=== PATIENT | female | born 1990 | race Two or more races ===

== ENCOUNTER 2016-11-03 12:51 | Emergency (ER) | payer BC, OTHER ==
[2016-11-03 14:17] LABS: Appearance,Urine Cloudy (Clear); Bacteria,Urine Rare /hpf; Bilirubin,Urine Negative (Negative); Glucose,Urine (UA) Negative (Negative); Ketones,Urine Negative (Negative); Leukocyte Esterase,Urine Small (Negative); Mucus,Urine Few /hpf; Nitrite,Urine Negative (Negative); Particle Count 10706; Protein,Urine Trace (Negative); RBC,Urine 13 /hpf (0-5); Specific Gravity,Urine 1.021 (1.001-1.035); Squamous Epithelial Cell,Urine 4 /hpf (0-4); UA Billing (MACRO vs. MICRO) MICRO; Urobilinogen,Urine <2.0 mg/dL (<2.0); WBC,Urine 4 /hpf (0-5)
[2016-11-03 14:31] VITALS: RESP 18
[2016-11-03] MEDS ORDERED: PHENAZOPYRIDINE 200 MG TAB PO STA (14:36)
--- NOTE | 2016-11-03 14:40 | ED ---
General Adult HPI - General Chief complaint: Abdominal Pain Stated complaint: Abd Pain Time Seen by Provider: 11/03/16 13:25 Source: patient, family Mode of arrival: wheelchair Limitations: language barrier - History of Present Illness Initial comments: 25-year-old [facility] female presented for evaluation of suprapubic abdominal pain and dysuria. She states that her symptoms started earlier today and it progressively been worsening. She denies any previous history of urinary tract infections. She further denies any associated vaginal discharge, vaginal bleeding, diarrhea, nausea, vomiting, fever, or constipation. - Related Data Home Medications Medication Instructions Recorded Confirmed Minastrin 24 Fe 1 tab PO DAILY 11/03/16 11/03/16 Previous Rx's Medication Instructions Recorded Phenazopyridine HCl [Pyridium] 200 mg PO TID #6 tablet 11/03/16 Sulfamethox-Tmp 800-160Mg [Bactrim 1 tab PO Q12HR #14 tab 11/03/16 DS 800-160 mg] Allergies Allergy/AdvReac Type Severity Reaction Status Date / Time No Known Allergies Allergy Verified 11/03/16 13:44 Review of Systems ROS Statement: Those systems with pertinent positive or pertinent negative responses have been documented in the HPI. ROS Other: All systems not noted in ROS Statement are negative. Constitutional: Denies: fever, chills Eyes: Denies: eye pain, eye discharge ENT: Denies: ear pain, throat pain Respiratory: Denies: cough, dyspnea Cardiovascular: Denies: chest pain, palpitations Endocrine: Denies: fatigue, polydipsia Gastrointestinal: Reports: abdominal pain. Denies: nausea, vomiting, diarrhea Genitourinary: Reports: urgency, dysuria Musculoskeletal: Denies: back pain, myalgia Skin: Denies: rash, lesions Neurological: Denies: headache, weakness Psychiatric: Denies: anxiety, depression Hematological/Lymphatic: Denies: easy bleeding, swollen glands Past Medical History Past Medical History: No Reported History History of Any Multi-Drug Resistant Organisms: None Reported Past Surgical History: No Surgical Hx Reported Past Psychological History: No Psychological Hx Reported Smoking Status: Never smoker Past Alcohol Use History: None Reported Past Drug Use History: None Reported, Unable to Obtain General Exam Limitations: language barrier (Patient requested that her father interpret for her as her Montserratian was not as good as his) General appearance: alert, in no apparent distress Head exam: Present: atraumatic, normocephalic Eye exam: Present: normal appearance, PERRL ENT exam: Present: normal exam, normal oropharynx Neck exam: Present: normal inspection. Absent: tenderness Respiratory exam: Present: normal lung sounds bilaterally. Absent: respiratory distress Cardiovascular Exam: Present: regular rate, normal rhythm GI/Abdominal exam: Present: soft. Absent: distended Rectal exam: Present: deferred Extremities exam: Present: normal inspection, full ROM Back exam: Present: normal inspection, full ROM Neurological exam: Present: alert, oriented X3, CN II-XII intact. Absent: altered Psychiatric exam: Present: normal affect, normal mood Skin exam: Present: warm, dry, intact Course Vital Signs 11/03/16 11/03/16 11/03/16 13:23 14:29 15:14 Temperature 97.6 F 96.9 F L Pulse Rate 71 68 70 Respiratory 16 18 18 Rate Blood Pressure 119/55 101/58 101/60 O2 Sat by Pulse 98 96 97 Oximetry Medical Decision Making - Medical Decision Making 25-year-old [facility] female presented for evaluation of suprapubic abdominal pain and dysuria for the last day. She speaks very little [place]ian but requested that her father interpret for her as his is much better. On physical examination she is tender to palpation in the suprapubic area and urinalysis confirmed a urinary tract infection. Patient was given a dose of Pyridium here in the ED after confirming she does not wear corrective contact lenses. She was informed she would be discharged with prescriptions for Bactrim and Pyridium and follow-up with her primary care physician. She was further advised to return to this facility if her symptoms should worsen or persist. She acknowledged an understanding of this information and agreed with this plan of care. - Lab Data Lab Results 11/03/16 Range/Units 13:50 Urine Color Yellow Urine Appearance Cloudy H (Clear) Urine pH 6.0 (5.0-8.0) Ur Specific [place] 1.021 (1.001-1.035) Urine Protein Trace H (Negative) Urine Glucose (UA) Negative (Negative) Urine Ketones Negative (Negative) Urine Blood Small H (Negative) Urine Nitrite Negative (Negative) Urine Bilirubin Negative (Negative) Urine Urobilinogen <2.0 (<2.0) mg/dL Ur Leukocyte Esterase Small H (Negative) Urine RBC 13 H (0-5) /hpf Urine WBC 4 (0-5) /hpf Ur Squamous Epith Cells 4 (0-4) /hpf Urine Bacteria Rare H (None) /hpf Urine Mucus Few H (None) /hpf Disposition Clinical Impression: UTI (urinary tract infection) Disposition: HOME SELF-CARE Condition: Stable Instructions: Urinary Tract Infection in Women (ED) Additional Instructions: Please use medication as discussed. Please follow up with family doctor if symptoms have not improved over the next two days. Please return to the emergency room if your symptoms increase or worsen or for any other concerns. Prescriptions: Phenazopyridine HCl [Pyridium] 200 mg PO TID #6 tablet Sulfamethox-Tmp 800-160Mg [Bactrim DS 800-160 mg] 1 tab PO Q12HR #14 tab Referrals: None,Stated [Primary Care Provider] - 1-2 days Time of Disposition: 14:40
[2016-11-03 15:15] VITALS: BP 101/60; PULSE 70; TEMP 96.9
== END 2016-11-03 15:14 | disposition home or self-care (01) ==
LOC: EC 12:51
DX: N39.0 Urinary tract infection, site not specified (principal); R10.9 Unspecified abdominal pain; Z79.899 Other long term (current) drug therapy
CPT/HCPCS: 81001; 99284

== ENCOUNTER → 2017-01-27 | Outpatient (CLI) | payer BC, OTHER ==
[2017-01-27 12:42] LABS: Basophils # (A) 0.1 k/uL (0-0.2); Basophils % (A) 1 %; CH 26.8; Eosinophils # (A) 0.3 k/uL (0-0.7); Eosinophils % (A) 5 %; HCT 40.7 % (34.0-46.0); HDW 2.35; Luc # (Auto) 0.15; Luc % (Auto) 2; Lymphocytes # (A) 2.9 k/uL (1.0-4.8); Lymphocytes % (A) 45 %; MCV 84.2 fL (80.0-100.0); Mean Platelet Volume 7.6; Monocytes # (A) 0.3 k/uL (0-1.0); Monocytes % (A) 5 %; Neutrophils # (A) 2.7 k/uL (1.3-7.7); Neutrophils % (A) 42 %; RBC 4.83 m/uL (3.80-5.40); RDW 13.7 % (11.5-15.5); WBC 6.4 k/uL (3.8-10.6); WBC (Perox) 7.01
[2017-01-27 12:51] LABS: Iron 30 ug/dL (37-170)
[2017-01-27 13:01] LABS: % Iron Saturation 9.9 % (20-50); Total Iron Binding Capacity 303 ug/dL (265-497)
[2017-01-27 13:45] LABS: Vitamin B12 >1000 pg/mL (239-931)
== END | disposition home or self-care (01) ==
LOC: LABWHC1 12:24
PROVIDERS: ATTEND Physician Assistant Medical
DX: L65.9 Nonscarring hair loss, unspecified (principal)
CPT/HCPCS: 36415; 82607; 82728; 83540; 83550; 84439; 84443; 85025; 86038

== ENCOUNTER 2017-03-16 18:51 | Emergency (ER) | payer BC, OTHER ==
[2017-03-16 19:03] VITALS: BP 127/61; PULSE 74; RESP 20; TEMP 98.1
[2017-03-16] MEDS ORDERED: ACETAMINOPHEN TAB 500 MG TAB PO STA (20:06)
[2017-03-16] MEDS ORDERED: diphenhydrAMINE 50 MG CAP PO STA (20:06)
[2017-03-16] MEDS ORDERED: predniSONE 10 MG TAB PO STA (20:07)
--- NOTE | 2017-03-16 20:10 | ED ---
General Adult HPI - General Chief complaint: Skin/Abscess/Foreign Body Stated complaint: rash on arms Time Seen by Provider: 03/16/17 19:23 Source: patient, family Mode of arrival: ambulatory Limitations: language barrier - Related Data Home Medications Medication Instructions Recorded Confirmed Cyanocobalamin (Vitamin B-12) 1,000 mcg PO DAILY 03/16/17 03/16/17 [Vitamin B-12] Ferrous Sulfate [Feosol] 325 mg PO DAILY 03/16/17 03/16/17 Previous Rx's Medication Instructions Recorded Hydrocortisone Cream 1 applic TOPICAL TID #1 tube 03/16/17 [Hydrocortisone 1% Cream] diphenhydrAMINE [Benadryl] 25 mg PO QID PRN #20 capsule 03/16/17 predniSONE 20 mg PO BID #6 tab 03/16/17 Allergies Allergy/AdvReac Type Severity Reaction Status Date / Time No Known Allergies Allergy Verified 03/16/17 19:03 Review of Systems ROS Statement: Those systems with pertinent positive or pertinent negative responses have been documented in the HPI. ROS Other: All systems not noted in ROS Statement are negative. Past Medical History Past Medical History: No Reported History History of Any Multi-Drug Resistant Organisms: None Reported Past Surgical History: No Surgical Hx Reported Past Psychological History: No Psychological Hx Reported Smoking Status: Never smoker Past Alcohol Use History: None Reported Past Drug Use History: None Reported, Unable to Obtain General Exam Limitations: language barrier Course Vital Signs 03/16/17 19:00 Temperature 98.1 F Pulse Rate 74 Respiratory 20 Rate Blood Pressure 127/61 O2 Sat by Pulse 99 Oximetry Disposition Clinical Impression: Insect bite, Headache Disposition: HOME SELF-CARE Condition: Good Instructions: Insect Bite or Sting (ED) Additional Instructions: Patient advised to put the cream over this for the next 3 days. Take the medications as prescribed. Follow-up with her primary care provider. Return to the emergency department if any alarming signs or symptoms occur. Prescriptions: diphenhydrAMINE [Benadryl] 25 mg PO QID PRN #20 capsule PRN Reason: Itching Hydrocortisone Cream [Hydrocortisone 1% Cream] 1 applic TOPICAL TID #1 tube predniSONE 20 mg PO BID #6 tab Referrals: Segundo Thrasher MD [Primary Care Provider] - 1-2 days Time of Disposition: 20:08
== END 2017-03-16 20:20 | disposition home or self-care (01) ==
LOC: EC 18:51
DX: S40.862A Insect bite (nonvenomous) of left upper arm, initial encounter (principal); S40.861A Insect bite (nonvenomous) of right upper arm, initial encounter; R51 Headache; Z79.899 Other long term (current) drug therapy; W57.XXXA Bitten or stung by nonvenomous insect and other nonvenomous arthropods, initial encounter
CPT/HCPCS: 99282; J7512

== ENCOUNTER → 2017-08-25 | Outpatient (CLI) | payer OTHER ==
--- NOTE | 2017-08-25 14:29 | US ---
EXAMINATION TYPE: US pelvic complete DATE OF EXAM: 08/25/2017 COMPARISON: CT CLINICAL HISTORY: Ovarian Cysts N83.20. Intermittent pelvic pain; no pregnancies TECHNIQUE: TA; patient deferred TV US as came with empty bladder and chose to drink for full bladder TA pelvic assessment. Date of LMP: approximately one month ago EXAM MEASUREMENTS: Uterus: 6.4 x 3.9 x 3.2 cm Endometrial Stripe: 0.8 cm Right Ovary: 4.5 x 2.8 x 3.2 cm Left Ovary: 4.0 x 2.8 x 2.5 cm 1. Uterus: Anteverted 2. Endometrium: appears wnl 3. Right Ovary: simple ovarian cyst = 4.4 x 2.8 x 2.6cm 4. Left Ovary: simple dominant cystic follicle = 2.5 x 2.0 x 2.4cm Spectral, color and waveform doppler imaging shows good arterial and venous flow within the ovaries ; there is no evidence for ovarian torsion. 5. Bilateral Adnexa: wnl 6. Posterior cul-de-sac: wnl IMPRESSION: Simple appearing right ovarian cyst measuring up to 4.4 cm. Annual follow-up is recommend ed for cyst greater than 5 cm and therefore annual follow-up could be considered as this approaches 5 cm. Endometrial thickness is within normal limits.
== END ==
LOC: RADUSWWP 12:15
PROVIDERS: ATTEND Internal Medicine
DX: N83.201 Unspecified ovarian cyst, right side (principal)
CPT/HCPCS: 76856

== ENCOUNTER → 2017-12-04 | Outpatient (CLI) | payer OTHER ==
--- NOTE | 2017-12-05 08:06 | US ---
EXAMINATION TYPE: US pelvic complete DATE OF EXAM: 12/04/2017 COMPARISON: 08/25/2017 CLINICAL HISTORY: N83.0 RT OVARIAN CYST. *language barrier*pelvic pain TECHNIQUE: TA. Transabdominal sonographic images of the pelvis were acquired. Date of LMP: unknown EXAM MEASUREMENTS: Uterus: 6.7 x 4.3 x 2.7 cm Endometrial Stripe: 0.4 cm Right Ovary: 3.0 x 1.8 x 1.9 cm Left Ovary: 2.0 x 2.5 x 1.2 cm 1. Uterus: Anteverted wnl 2. Endometrium: wnl 3. Right Ovary: follicles seen all under 1cm 4. Left Ovary: wnl 5. Bilateral Adnexa: wnl 6. Posterior cul-de-sac: wnl IMPRESSION: No significant abnormality appreciated.
== END | disposition home or self-care (01) ==
LOC: RADUSWWP 15:49
PROVIDERS: ATTEND Internal Medicine
DX: N83.201 Unspecified ovarian cyst, right side (principal)
CPT/HCPCS: 76856

== ENCOUNTER 2018-07-30 15:36 | Emergency (ER) | payer OTHER ==
[2018-07-30 15:54] VITALS: RESP 16
--- NOTE | 2018-07-30 16:05 | ED ---
Female Urogenital HPI - General Chief complaint: OB/Uterine Contractions Stated complaint: Female Time Seen by Provider: 07/30/18 15:56 Source: patient, family Mode of arrival: ambulatory Limitations: no limitations - History of Present Illness Initial comments: 27-year-old female who admits to history of "cyst" presenting today for chief complaint of lower pelvic pain. Patient states that the pelvic pain has been ongoing for the past week, she also had noted some vaginal discharge, denies odor. Patient states she is also not had her period in 2 months and was concerned about . Patient states she would like a test today. Patient denies any nausea, vomiting, diarrhea, fever or chills. Patient denies any back pain, chest pain or shortness of breath today. Initial history of obtained by family member translation however, I did confirm history through translation. Upon arrival patient is well-appearing, nontoxic. No signs of peritoneal irritation while walking into ER. Vital signs within normal limits. Last Menstrual Period: 05/30/18 - Related Data Home Medications Medication Instructions Recorded Confirmed Cyanocobalamin (Vitamin B-12) 1,000 mcg PO DAILY 03/16/17 07/30/18 [Vitamin B-12] Ferrous Sulfate [Feosol] 325 mg PO DAILY 03/16/17 07/30/18 Previous Rx's Medication Instructions Recorded Hydrocortisone Cream 1 applic TOPICAL TID #1 tube 03/16/17 [Hydrocortisone 1% Cream] diphenhydrAMINE [Benadryl] 25 mg PO QID PRN #20 capsule 03/16/17 predniSONE 20 mg PO BID #6 tab 03/16/17 Allergies Allergy/AdvReac Type Severity Reaction Status Date / Time No Known Allergies Allergy Verified 07/30/18 15:55 Review of Systems ROS Statement: Those systems with pertinent positive or pertinent negative responses have been documented in the HPI. ROS Other: All systems not noted in ROS Statement are negative. Constitutional: Denies: fever, chills Respiratory: Denies: cough, dyspnea, wheezes Cardiovascular: Denies: chest pain, dyspnea on exertion Gastrointestinal: Reports: abdominal pain. Denies: nausea, vomiting, diarrhea, constipation, hematemesis, melena, hematochezia Genitourinary: Reports: discharge, abnormal menses. Denies: urgency, dysuria, frequency, hematuria Musculoskeletal: Denies: back pain Skin: Denies: rash Neurological: Denies: headache, weakness Past Medical History Past Medical History: No Reported History History of Any Multi-Drug Resistant Organisms: None Reported Past Surgical History: No Surgical Hx Reported Past Psychological History: No Psychological Hx Reported Smoking Status: Never smoker Past Alcohol Use History: None Reported Past Drug Use History: None Reported, Unable to Obtain General Exam - General Exam Comments Initial Comments: General: The patient is awake and alert, in no distress, and does not appear acutely ill. Eye: Pupils are equal, round and reactive to light, extra-ocular movements are intact. No nystagmus. There is normal conjunctiva bilaterally. No signs of icterus. Ears, nose, mouth and throat: There are moist mucous membranes and no oral lesions. Neck: The neck is supple, there is no tenderness or JVD. Cardiovascular: There is a regular rate and rhythm. No murmur, rub or gallop is appreciated. Respiratory: Lungs are clear to auscultation, respirations are non-labored, breath sounds are equal. No wheezes, stridor, rales, or rhonchi. Gastrointestinal: No noted diaphoresis, jaundice, pallor, protecting postures or squirming. Symmetrical pigmentation of abdomen without signs of inflammation, [scars], or striae. Umbilicus mildline, inverted without swelling. No dilated veins. No noted abdominal distention. No visible masses. No peristalsis, aortic pulsations , or ventral hernia. Bowel sounds audible in all 4 quadrants, unremarkable. No friction rubs or venous hums. No epigastic, hepatic or abdominal bruits. Mild pain to deep palpation midline/left lower over pelvic region. No RLQ.. Liver edge, not palpable. Spleen edge, right and left kidney not palpable. Superior bladder margin non-tender. Special Testing: Negative shifting dullness, fluid wave, [place], Rovsing, McBurney, Jillian, cutaneous hyperesthesia. Iliopsoas and obturator tests negative bilaterally. Negative Heel Jar test/mario sign. No CVA tenderness. Digital rectal exam deferred. Negative wang turners or cullens sign Musculoskeletal: Normal ROM, no tenderness. Strength 5/5. Sensation intact. Pulses equal bilaterally 2+. Neurological: A&O x 3. CN II-XII intact, There are no obvious motor or sensory deficits. Coordination appears grossly intact. Speech is normal. Skin: Skin is warm and dry and no rashes or lesions are noted. Psychiatric: Cooperative, appropriate mood & affect, normal judgment. Pelvic Exam: External: No lesions, erythema, masses, pubic hair shaved Internal exam revealed no lesions, erythema, white/yellow discharge in vault, vaginal mucosa is pink and well rugated. Cervical os closed, no discharge from os, no cervical motion tenderness, or adnexal tenderness. No odor. Limitations: no limitations Course Vital Signs 07/30/18 07/30/18 15:51 19:27 Temperature 98.3 F 98.2 F Pulse Rate 80 76 Respiratory 16 16 Rate Blood Pressure 126/69 124/76 O2 Sat by Pulse 99 98 Oximetry Medical Decision Making - Medical Decision Making 27yo with pelvic pain and amenorrhea concerning for . Pt VS WNL upon arrival. Pt did not appear to be in significant pain upon exam. PE revealed mild tenderness to palpation midline in the pelvis as well as left lower pelvic pain with deep palpation. Pelvic exam revealed copious discharge in the vaginal vault. No cervical motion or adnexal tenderness. WBC WNL. This was concerning for sexually transmitted disease. Trichomonas (-) Patient was treated prophylactically for gonorrhea or chlamydia. Pelvic US revealed 2.5 center left ovarian cyst, this is consistent to pain with deep palpation of the left lower pelvic region. At this time I feel pain most likely related to ovarian cyst. No clinical findings suggestive of PID at this time. Pt will be discharged will OBGYN and family practice f/u. Pt is agreeable with plan. Denies questions at this time. Case discussed with Dr. Haq who agreed with impression and plan patient was discharged in stable condition Return parameters discussed at length prior to discharge. - Lab Data Result diagrams: 07/30/18 17:05 07/30/18 17:05 Lab Results 07/30/18 07/30/18 07/30/18 Range/Units 16:03 16:03 17:05 WBC 6.6 (3.8-10.6) k/uL RBC 5.61 H (3.80-5.40) m/uL Hgb 13.2 (11.4-16.0) gm/dL Hct 42.3 (34.0-46.0) % MCV 75.4 L (80.0-100.0) fL MCH 23.5 L (25.0-35.0) pg MCHC 31.1 (31.0-37.0) g/dL RDW 15.1 (11.5-15.5) % Plt Count 343 (150-450) k/uL Neutrophils % 40 % Lymphocytes % 47 % Monocytes % 5 % Eosinophils % 5 % Basophils % 1 % Neutrophils # 2.6 (1.3-7.7) k/uL Lymphocytes # 3.1 (1.0-4.8) k/uL Monocytes # 0.4 (0-1.0) k/uL Eosinophils # 0.3 (0-0.7) k/uL Basophils # 0.1 (0-0.2) k/uL Microcytosis Slight Sodium (137-145) mmol/L Potassium (3.5-5.1) mmol/L Chloride (98-107) mmol/L Carbon Dioxide (22-30) mmol/L Anion Gap mmol/L BUN (7-17) mg/dL Creatinine (0.52-1.04) mg/dL Est GFR (CKD-EPI)AfAm (>60 ml/min/1.73 sqM) Est GFR (CKD-EPI)NonAf (>60 ml/min/1.73 sqM) Glucose (74-99) mg/dL Calcium (8.4-10.2) mg/dL Total Bilirubin (0.2-1.3) mg/dL AST (14-36) U/L ALT (9-52) U/L Alkaline Phosphatase (38-126) U/L Total Protein (6.3-8.2) g/dL Albumin (3.5-5.0) g/dL Urine Color Yellow Urine Appearance Cloudy H (Clear) Urine pH 5.5 (5.0-8.0) Ur Specific [place] 1.023 (1.001-1.035) Urine Protein Trace H (Negative) Urine Glucose (UA) Negative (Negative) Urine Ketones Negative (Negative) Urine Blood Negative (Negative) Urine Nitrite Negative (Negative) Urine Bilirubin Negative (Negative) Urine Urobilinogen <2.0 (<2.0) mg/dL Ur Leukocyte Esterase Large H (Negative) Urine RBC 3 (0-5) /hpf Urine WBC 11 H (0-5) /hpf Ur Squamous Epith Cells 5 H (0-4) /hpf Urine Bacteria Few H (None) /hpf Urine Mucus Few H (None) /hpf Urine HCG, Qual Not Detected (Not Detectd) Trichomonas Ag (Rapid) (Negative) 07/30/18 07/30/18 Range/Units 17:05 18:05 WBC (3.8-10.6) k/uL RBC (3.80-5.40) m/uL Hgb (11.4-16.0) gm/dL Hct (34.0-46.0) % MCV (80.0-100.0) fL MCH (25.0-35.0) pg MCHC (31.0-37.0) g/dL RDW (11.5-15.5) % Plt Count (150-450) k/uL Neutrophils % % Lymphocytes % % Monocytes % % Eosinophils % % Basophils % % Neutrophils # (1.3-7.7) k/uL Lymphocytes # (1.0-4.8) k/uL Monocytes # (0-1.0) k/uL Eosinophils # (0-0.7) k/uL Basophils # (0-0.2) k/uL Microcytosis Sodium 140 (137-145) mmol/L Potassium 3.9 (3.5-5.1) mmol/L Chloride 106 (98-107) mmol/L Carbon Dioxide 24 (22-30) mmol/L Anion Gap 10 mmol/L BUN 12 (7-17) mg/dL Creatinine 0.57 (0.52-1.04) mg/dL Est GFR (CKD-EPI)AfAm >90 (>60 ml/min/1.73 sqM) Est GFR (CKD-EPI)NonAf >90 (>60 ml/min/1.73 sqM) Glucose 102 H (74-99) mg/dL Calcium 9.4 (8.4-10.2) mg/dL Total Bilirubin 0.3 (0.2-1.3) mg/dL AST 16 (14-36) U/L ALT 19 (9-52) U/L Alkaline Phosphatase 80 (38-126) U/L Total Protein 7.8 (6.3-8.2) g/dL Albumin 4.3 (3.5-5.0) g/dL Urine Color Urine Appearance (Clear) Urine pH (5.0-8.0) Ur Specific [place] (1.001-1.035) Urine Protein (Negative) Urine Glucose (UA) (Negative) Urine Ketones (Negative) Urine Blood (Negative) Urine Nitrite (Negative) Urine Bilirubin (Negative) Urine Urobilinogen (<2.0) mg/dL Ur Leukocyte Esterase (Negative) Urine RBC (0-5) /hpf Urine WBC (0-5) /hpf Ur Squamous Epith Cells (0-4) /hpf Urine Bacteria (None) /hpf Urine Mucus (None) /hpf Urine HCG, Qual (Not Detectd) Trichomonas Ag (Rapid) Negative (Negative) Disposition Clinical Impression: Pelvic pain, Amenorrhea, Ovarian cyst, Vaginal discharge Disposition: HOME SELF-CARE Condition: Good Instructions: Pelvic Pain in Women (ED), Vaginal Discharge (ED) Additional Instructions: Please use medication as discussed. Please follow-up with family doctor in the next 2 days, and OBGYN in the next week. Please return to emergency room if the symptoms increase or worsen or for any other concerns. Is patient prescribed a controlled substance at d/c from ED?: No Referrals: None,Stated [Primary Care Provider] - 1-2 days Jorge Aguilar DO [Doctor of Osteopathic Medicine] - 1-2 days Time of Disposition: 18:21
[2018-07-30 16:38] LABS: Appearance,Urine Cloudy (Clear); Bacteria,Urine Few /hpf; Bilirubin,Urine Negative (Negative); Blood,Urine Negative (Negative); Color,Urine Yellow; Glucose,Urine (UA) Negative (Negative); Ketones,Urine Negative (Negative); Leukocyte Esterase,Urine Large (Negative); Mucus,Urine Few /hpf; Nitrite,Urine Negative (Negative); PH, Urine 5.5 (5.0-8.0); Protein,Urine Trace (Negative); RBC,Urine 3 /hpf (0-5); Specific Gravity,Urine 1.023 (1.001-1.035); Squamous Epithelial Cell,Urine 5 /hpf (0-4); Urobilinogen,Urine <2.0 mg/dL (<2.0)
[2018-07-30 17:19] LABS: Basophils # (A) 0.1 k/uL (0-0.2); Basophils % (A) 1 %; Eosinophils # (A) 0.3 k/uL (0-0.7); Eosinophils % (A) 5 %; HCT 42.3 % (34.0-46.0); HGB 13.2 gm/dL (11.4-16.0); Lymphocytes # (A) 3.1 k/uL (1.0-4.8); Lymphocytes % (A) 47 %; MCH 23.5 pg (25.0-35.0); MCHC 31.1 g/dL (31.0-37.0); MCV 75.4 fL (80.0-100.0); Mean Platelet Volume 7.2; Microcytosis Slight; Monocytes # (A) 0.4 k/uL (0-1.0); Monocytes % (A) 5 %; Neutrophils # (A) 2.6 k/uL (1.3-7.7); Neutrophils % (A) 40 %; Platelet Count 343 k/uL (150-450); RBC 5.61 m/uL (3.80-5.40); RDW 15.1 % (11.5-15.5); WBC 6.6 k/uL (3.8-10.6)
[2018-07-30 17:31] LABS: ALT 19 U/L (9-52); AST 16 U/L (14-36); Albumin 4.3 g/dL (3.5-5.0); Alkaline Phosphatase 80 U/L (38-126); Anion Gap 10 mmol/L; Blood Urea Nitrogen 12 mg/dL (7-17); Calcium 9.4 mg/dL (8.4-10.2); Carbon Dioxide 24 mmol/L (22-30); Chloride 106 mmol/L (98-107); Glucose 102 mg/dL (74-99); Potassium 3.9 mmol/L (3.5-5.1); Sodium 140 mmol/L (137-145); Total Bilirubin 0.3 mg/dL (0.2-1.3); Total Protein 7.8 g/dL (6.3-8.2)
--- NOTE | 2018-07-30 17:36 | US ---
EXAMINATION TYPE: US pelvic complete DATE OF EXAM: 07/30/2018 COMPARISON: NONE CLINICAL HISTORY: Pain. Pelvic pain TECHNIQUE: Transabdominal (TA) Date of LMP: unknown EXAM MEASUREMENTS: Uterus: 7.2 x 3.2 x 4.7 cm Endometrial Stripe: 0.6 cm Right Ovary: 3.2 x 1.7 x 1.9 cm Left Ovary: 5.0 x 2.2 x 3.2 cm 1. Uterus: Anteverted wnl 2. Endometrium: wnl 3. Right Ovary: follicles noted 4. Left Ovary: cystic area = 2.4 x 2.1 x 2.5cm Spectral, color and waveform doppler imaging shows good arterial and venous flow within the ovaries ; there is no evidence for ovarian torsion. 5. Bilateral Adnexa: wnl 6. Posterior cul-de-sac: wnl IMPRESSION: No evidence of ovarian torsion. There is a dominant 2.5 cm cyst on the left ovary. No janet id adnexal mass. No free fluid.
[2018-07-30] MEDS ORDERED: AZITHROMYCIN 500 MG TAB PO STA (18:06)
[2018-07-30] MEDS ORDERED: cefTRIAXone 250 MG VIAL IM STA (18:07)
[2018-07-30 19:28] VITALS: BP 124/76; PULSE 76; TEMP 98.2
[2018-08-01 14:11] LABS: C. trachomatis,PCR Negative (Neg,Equiv); Chlamydia trachomatis Source Urine; N. gonorrhoeae,PCR Negative (Neg,Equiv); Neisseria Source Urine
== END 2018-07-30 19:27 | disposition home or self-care (01) ==
LOC: EC 15:36
DX: N91.2 Amenorrhea, unspecified (principal); N83.202 Unspecified ovarian cyst, left side; N89.8 Other specified noninflammatory disorders of vagina; Z32.01 Encounter for pregnancy test, result positive
CPT/HCPCS: 36415; 80053; 85025; 81001; 81025; 87808; 87491; 87591; 87086; 93975; 76856; 99284; 96372; J0696

== ENCOUNTER → 2018-08-31 | Outpatient (CLI) | payer OTHER ==
--- NOTE | 2018-08-31 16:16 | US ---
EXAMINATION TYPE: US pelvic complete DATE OF EXAM: 08/31/2018 COMPARISON: US 2018 CLINICAL HISTORY: N83.0 Follow up L ovarian Cyst. Follow up left ovarian cyst, language barrier: un able to obtain too much history from patient TECHNIQUE: . Transabdominal sonographic images of the pelvis were acquired. Date of LMP: Unknown EXAM MEASUREMENTS: Uterus: 5.1 x 3.1 x 4.0 cm Endometrial Stripe: 0.5 cm Right Ovary: 2.5 x 1.6 x 1.7 cm Left Ovary: 4.2 x 2.4 x 3.6 cm 1. Uterus: anteverted 2. Endometrium: appears wnl 3. Right Ovary: wnl 4. Left Ovary: 1.9 x 2.0 x 2.1cm cystic area 5. Bilateral Adnexa: wnl 6. Posterior cul-de-sac: wnl IMPRESSION: 1. Left ovarian cyst. This is not completely simple and follow-up is recommended.
[2018-08-31 16:45] LABS: Appearance,Urine Cloudy (Clear); Bilirubin,Urine Negative (Negative); Blood,Urine Small (Negative); Color,Urine Light Yellow; Glucose,Urine (UA) Negative (Negative); Ketones,Urine Negative (Negative); Leukocyte Esterase,Urine Large (Negative); Mucus,Urine Rare /hpf; Nitrite,Urine Negative (Negative); PH, Urine 5.5 (5.0-8.0); Protein,Urine Negative (Negative); RBC,Urine 11 /hpf (0-5); Specific Gravity,Urine 1.005 (1.001-1.035); Squamous Epithelial Cell,Urine 2 /hpf (0-4); Urobilinogen,Urine <2.0 mg/dL (<2.0); WBC,Urine 13 /hpf (0-5)
[2018-08-31 17:16] LABS: T4, Free (Free Thyroxine) 1.02 ng/dL (0.78-2.19)
[2018-09-01 02:11] LABS: T3, Uptake 27 % (23-37)
[2018-09-01 04:09] LABS: Progesterone <0.2 ng/mL
== END | disposition home or self-care (01) ==
LOC: RADUSWWP 15:44
PROVIDERS: ATTEND Obstetrics & Gynecology
DX: N83.202 Unspecified ovarian cyst, left side (principal); N91.2 Amenorrhea, unspecified; Z13.29 Encounter for screening for other suspected endocrine disorder
CPT/HCPCS: 76856; 81001; 82627; 82670; 83001; 83002; 84144; 84146; 84403; 84439; 84443; 84479; 87086

== ENCOUNTER → 2019-04-25 | Outpatient (CLI) | payer OTHER ==
[2019-04-25 12:05] LABS: Basophils # (A) 0.1 k/uL (0-0.2); Basophils % (A) 2 %; Eosinophils # (A) 0.5 k/uL (0-0.7); Eosinophils % (A) 8 %; HCT 39.5 % (34.0-46.0); HGB 12.7 gm/dL (11.4-16.0); Lymphocytes # (A) 3.3 k/uL (1.0-4.8); Lymphocytes % (A) 53 %; MCH 25.4 pg (25.0-35.0); MCHC 32.1 g/dL (31.0-37.0); MCV 78.9 fL (80.0-100.0); Mean Platelet Volume 7.4; Monocytes # (A) 0.3 k/uL (0-1.0); Monocytes % (A) 5 %; Neutrophils % (A) 31 %; Platelet Count 308 k/uL (150-450); RDW 13.9 % (11.5-15.5); WBC 6.3 k/uL (3.8-10.6)
[2019-04-25 16:39] LABS: Progesterone 0.2 ng/mL
[2019-04-25 19:32] LABS: ALT <8 U/L (8-44); AST 16 U/L (13-35); African American GFR (CKD) 142.8 (60.0-200.0); Albumin/Globulin Ratio 1.92 (1.60-3.17); Alkaline Phosphatase 83 U/L (41-126); BUN/Creat Ratio 13.33 Ratio (12.00-20.00); Calcium 9.4 mg/dL (8.7-10.3); Carbon Dioxide 24.4 mmol/L (21.6-31.8); Chloride 104 mmol/L (96-109); Globulin 2.4 g/dL (1.6-3.3); Glucose 102 mg/dL (70-110); Potassium 4.2 mmol/L (3.5-5.5); Sodium 137 mmol/L (135-145); Total Bilirubin 0.3 mg/dL (0.3-1.2)
== END ==
LOC: LABWHC1 11:12
PROVIDERS: ATTEND Internal Medicine
DX: N91.2 Amenorrhea, unspecified (principal); R43.0 Anosmia
CPT/HCPCS: 36415; 80053; 82672; 83001; 83002; 84144; 84439; 84443; 85025

== ENCOUNTER → 2019-05-22 | Outpatient (CLI) | payer OTHER ==
--- NOTE | 2019-05-22 14:50 | US ---
EXAMINATION TYPE: US pelvic complete DATE OF EXAM: 05/22/2019 COMPARISON: US CLINICAL HISTORY: R10.2 PELVIC PAIN,N94.6 DYSMENORRHEA. Pelvic pain, H/O ovarian cysts TECHNIQUE: Transabdominal (TA). Transabdominal sonographic images of the pelvis were acquired. TV deferred due to language barrier Date of LMP: Unknown, language barrier EXAM MEASUREMENTS: Uterus: 7.2 x 2.9 x 3.9 cm cm Endometrial Stripe: 0.3 cm Right Ovary: 6.6 x 4.8 x 6.1 cm Left Ovary: 3.3 x 2.2 x 3.0 cm 1. Uterus: Anteverted wnl 2. Endometrium: wnl 3. Right Ovary: Cyst with thin septations= 6.1 x 4.0 x 5.2 cm. No solid nodule nor internal vascular flow. This is new from the prior of 08/31/2018. 4. Left Ovary: Simple appearing cyst= 2.4 x 2.3 x 2.3 cm. This previously measured 1.9 x 2.0 x 2.1 c m. 5. Bilateral Adnexa: wnl 6. Posterior cul-de-sac: wnl Arterial and venous waveforms were seen to the right ovary. This was performed given the large size o f the right ovarian cystic mass. IMPRESSION: 1. New 6 cm mildly complex cyst with few internal septations. The size of the cyst predisposes the pa tient to torsion. No evidence of torsion is seen on today's exam. Follow-up pelvic ultrasound in 3 me nstrual cycles would ensure resolution. 2. Simple appearing left ovarian cyst has decreased in complexity and appears benign. This is very mi nimally larger than the prior exam.
== END | disposition home or self-care (01) ==
LOC: RADUSWWP 13:03
PROVIDERS: ATTEND Internal Medicine
DX: N83.209 Unspecified ovarian cyst, unspecified side (principal); N94.6 Dysmenorrhea, unspecified
CPT/HCPCS: 76856

== ENCOUNTER → 2019-08-19 | Outpatient (CLI) | payer OTHER ==
--- NOTE | 2019-08-19 11:46 | US ---
EXAMINATION TYPE: US pelvic complete DATE OF EXAM: 08/19/2019 COMPARISON: US 05/22/2019 CLINICAL HISTORY: N83.299 Ovarian Cyst. Follow up right ovarian cyst, language barrier TECHNIQUE: Transabdominal sonographic images of the pelvis were acquired. TV deferred due to language barrier Date of LMP: Language barrier EXAM MEASUREMENTS: Uterus: 6.6 x 2.9 x 4.4 cm Endometrial Stripe: 0.5 cm Right Ovary: 2.7 x 1.9 x 1.6 cm Left Ovary: 4.7 x 2.9 x 5.5 cm 1. Uterus: anteverted, wnl 2. Endometrium: appears wnl 3. Right Ovary: wnl. The previously seen 6.0 cm right ovarian cyst has resolved. 4. Left Ovary: 3.6 x 2.2 x 3.6cm cyst, 2.6 x 2.1 x 1.9cm cyst Spectral, color and waveform doppler imaging shows good arterial and venous flow within the left ov bijan; there is no evidence for ovarian torsion within the left ovary 5. Bilateral Adnexa: wnl 6. Posterior cul-de-sac: wnl IMPRESSION: Resolution of the previously seen 6.0 cm complex right ovarian cyst. Simple appearing lef t ovarian cysts are likely functional.
== END | disposition home or self-care (01) ==
LOC: RADUSWWP 10:46
PROVIDERS: ATTEND Family Medicine
DX: N83.202 Unspecified ovarian cyst, left side (principal)
CPT/HCPCS: 76856; 93976

== ENCOUNTER 2020-03-08 23:48 | Emergency (ER) | payer OTHER ==
[2020-03-09 00:02] VITALS: BP 116/77; PULSE 89; RESP 18; TEMP 99.2
[2020-03-09] MEDS ORDERED: CEPHALEXIN 500 MG CAP PO STA (00:33)
--- NOTE | 2020-03-09 00:38 | ED ---
Skin/Abscess/FB HPI - General Chief complaint: Skin/Abscess/Foreign Body Stated complaint: Bump on leg Time Seen by Provider: 03/09/20 00:10 Source: patient Mode of arrival: ambulatory Limitations: no limitations - History of Present Illness Initial comments: Patient is a 29-year-old female presenting to the emergency department with chief complaint of bump on the leg. Patient is not speaking much. present in the room to answer any additional questions. Patient states she has a "bump" on the leg that she noticed 1 day. States it is located on the anterior aspect of her right thigh. Patient states it is itchy and painful to palpation. Denies any fevers or chills. Denies any drainage from region. Denies taking medication to alleviate some of this. - Related Data Home Medications Medication Instructions Recorded Confirmed Cyanocobalamin (Vitamin B-12) 1,000 mcg PO DAILY 03/16/17 07/30/18 [Vitamin B-12] Ferrous Sulfate [Feosol] 325 mg PO DAILY 03/16/17 07/30/18 Previous Rx's Medication Instructions Recorded Hydrocortisone Cream 1 applic TOPICAL TID #1 tube 03/16/17 [Hydrocortisone 1% Cream] diphenhydrAMINE [Benadryl] 25 mg PO QID PRN #20 capsule 03/16/17 predniSONE [Deltasone] 20 mg PO BID #6 tab 03/16/17 Cephalexin [Keflex] 500 mg PO Q6HR 5 Days #20 cap 03/09/20 Allergies Allergy/AdvReac Type Severity Reaction Status Date / Time No Known Allergies Allergy Verified 03/09/20 00:02 Review of Systems ROS Statement: Those systems with pertinent positive or pertinent negative responses have been documented in the HPI. ROS Other: All systems not noted in ROS Statement are negative. Past Medical History Past Medical History: No Reported History History of Any Multi-Drug Resistant Organisms: ESBL Date of last positivie culture/infection: 07/30/18 MDRO Source:: ESBL URINE Past Surgical History: No Surgical Hx Reported Past Psychological History: No Psychological Hx Reported Past Alcohol Use History: None Reported Past Drug Use History: None Reported, Unable to Obtain General Exam Limitations: no limitations General appearance: alert, in no apparent distress Head exam: Present: atraumatic, normocephalic, normal inspection Eye exam: Present: normal appearance, PERRL, EOMI Pupils: Present: normal accommodation ENT exam: Present: normal exam, normal oropharynx, mucous membranes moist, TM's normal bilaterally, normal external ear exam Neck exam: Present: normal inspection, full ROM. Absent: tenderness Respiratory exam: Present: normal lung sounds bilaterally. Absent: respiratory distress, wheezes Cardiovascular Exam: Present: regular rate, normal rhythm, normal heart sounds Extremities exam: Present: full ROM, tenderness, normal capillary refill. Absent: normal inspection (Cellulitis on the anterior aspect of the right thigh. Overlying cellulitic skin changes.) Back exam: Present: normal inspection, full ROM. Absent: tenderness Neurological exam: Present: alert, oriented X3, normal gait Psychiatric exam: Present: normal affect, normal mood Skin exam: Present: warm, dry, intact, normal color, rash (Cellulitis) Course Vital Signs 03/08/20 23:58 Temperature 99.2 F Pulse Rate 89 Respiratory 18 Rate Blood Pressure 116/77 O2 Sat by Pulse 98 Oximetry Medical Decision Making - Medical Decision Making Patient is a 29-year-old female presenting to the emergency department with a chief complaint of bump on leg. Exam patient appears to have cellulitis. Marker used to draw the borders of the cellulitis. No signs of an abscess. Patient denies fevers. She is afebrile here. Patient started on Keflex. Patient will be discharged a 5 day course of Keflex. Return parameters discussed. Case discussed with physician. Disposition Clinical Impression: Cellulitis of skin Disposition: HOME SELF-CARE Condition: Stable Instructions (If sedation given, give patient instructions): Cellulitis (DC) Additional Instructions: Take prescribed medication as directed. Follow with primary care. Return to emergency department if symptoms worsen. Prescriptions: Cephalexin [Keflex] 500 mg PO Q6HR 5 Days #20 cap Is patient prescribed a controlled substance at d/c from ED?: No Referrals: Segundo Thrasher MD [Primary Care Provider] - 1-2 days Time of Disposition: 00:36
== END 2020-03-09 00:45 | disposition home or self-care (01) ==
LOC: EC 23:48
DX: L03.115 Cellulitis of right lower limb (principal)
CPT/HCPCS: 99283

== ENCOUNTER → 2020-06-19 | Outpatient (CLI) | payer OTHER ==
--- NOTE | 2020-06-19 15:34 | US ---
EXAMINATION TYPE: US abdomen complete DATE OF EXAM: 06/19/2020 COMPARISON: NONE CLINICAL HISTORY: R10.13 EPIGASTRIC PAIN,R10.2 ABD PAIN. abdominal pain EXAM MEASUREMENTS: Liver Length: 14.8 cm Gallbladder Wall: 0.3 cm CBD: 0.3 cm Spleen: 10.2 cm Right Kidney: 11.0 x 3.9 x 3.9 cm Left Kidney: 9.7 x 4.5 x 4.8 cm Pancreas: visualized portions appear wnl Liver: wnl Gallbladder: no evidence of stones Evidence for sonographic Walker's sign: no CBD: wnl Spleen: appears wnl Right Kidney: no evidence of hydronephrosis Left Kidney: no evidence of hydronephrosis Upper IVC: wnl Abd Aorta: wnl IMPRESSION: 1. Normal abdomen ultrasound
--- NOTE | 2020-06-19 15:37 | US ---
EXAMINATION TYPE: US pelvic complete DATE OF EXAM: 06/19/2020 COMPARISON: NONE CLINICAL HISTORY: R10.13 EPIGASTRIC PAIN,R10.2 ABD PAIN. pelvic pain TECHNIQUE: Transabdominal (TA). Date of LMP: 06/10/20 EXAM MEASUREMENTS: Uterus: 5.5 x 3.1 x 3.7 cm Endometrial Stripe: 0.2 cm Right Ovary: 6.5 x 4.3 x 4.9 cm Left Ovary: 3.2 x 2.3 x 2.1 cm 1. Uterus: Anteverted wnl 2. Endometrium: wnl 3. Right Ovary: cystic area = 5.4 x 3.9 x 4.6cm 4. Left Ovary: follicles noted, paraovarian cystic area = 2.6 x 2.4 x 2.3cm Spectral, color and waveform doppler imaging shows good arterial and venous flow within the right o vary; there is no evidence for ovarian torsion. 5. Bilateral Adnexa: wnl 6. Posterior cul-de-sac: wnl IMPRESSION: 1. Bilateral renal cysts. 2. Additional follicles evident on the left ovary. 3. Color flow not performed on the left ovary. Additional imaging can be performed if there is pain o n the left.
== END | disposition home or self-care (01) ==
LOC: RADUSWWP 10:23
PROVIDERS: ATTEND Family Medicine
DX: N28.1 Cyst of kidney, acquired (principal); N83.02 Follicular cyst of left ovary
CPT/HCPCS: 76700; 76856

== ENCOUNTER 2021-01-09 | Outpatient (CLI) | payer OTHER ==
--- NOTE | 2021-01-14 11:30 | P.MSEPDOC ---
Presenting Problems - Arrival Data Date of Arrival on Unit: 01/09/21 Time of Arrival on Unit: 19:40 Mode of Transport: Ambulatory - Complaint OB-Reason for Admission/Chief Complaint: Decreased Movement Comment: patient present to triage due to not feeling baby move today, patient has travel from [facility] this week and has not seen a doctor yet this pregnacy, Doppler preformed FHR 153-169. Medical History - Information : 1 Para: 0 Term: 0 : 0 Abortions: Spontaneous or Elective: 0 Number of Living Children: 0 - Gestational Age Gestational Age by NEGRITO (wks/days): 20 Weeks and 1 Days - History Complications: No Care Comment: unknown EDC, no care yet this . Review of Systems - Review of Systems Constitutional: No problems Breast: No problems ENT: No problems Cardiovascular: No problems Respiratory: No problems Gastrointestinal: No problems Genitourinary: No problems Musculoskeletal: No problems Neurological: No problems Skin: No problems Vital Signs - Temperature Temperature: 96.1 F Temperature Source: Temporal Artery Scan - Pulse Pulse Oximetery Pulse Rate: 94 Pulse Assessment Method: Automatic Cuff - Respirations Respiratory Rate: 16 Oxygen Delivery Method: Room Air O2 Sat by Pulse Oximetry: 99 - Blood Pressure Right Arm Blood Pressure: 129/70 Blood Pressure Mean: 89 Blood Pressure Source: Automatic Cuff Medical Screen Scoring (Pre) - Cervical Exam Dilation: Exam Deferred Effacement: Exam Deferred Membranes: Intact - Uterine Contractions Frequency: N/A Duration: N/A Intensity: N/A - Maternal Vital Signs Maternal Temperature: N/A Signs of Preeclampsia: N/A Maternal Respirations: N/A - Maternal Trauma Maternal Trauma: N/A - Assessment - Baby A Baseline FHR: 153-169 Heart Rate - NICHD Category: Category I (Normal) = 0 Position: N/A Station: N/A - Total Score - Baby A Total Score - Baby A: 0 - Total Score - Baby B Total Score - Baby B: 0 - Total Score - Baby C Total Score - Baby C: 0 - Level of Risk - Baby A Level of Risk - Baby A: Low (0-5) - Level of Risk - Baby B Level of Risk - Baby B: Low (0-5) - Level of Risk - Baby C Level of Risk - Baby C: Low (0-5) Physician Notification (Pre) - Physician Notified Physician Notified Date: 01/09/21 Physician Notified Time: 20:00 New Order Received: Yes - Notification Comment Comment: orders to discharge patient home and have them set up and apt. with an OB provider, OB information set with patient. Disposition - Disposition OB Disposition: Discharge to home Discharge Date: 01/09/21 Discharge Time: 20:16 I agree with the RN Medical Screening Exam: Yes Case reviewed; plan agreed upon as documented in EMR&OBIX.: Yes Diagnosis: DECREASED MOVEMENTS, SECOND TRIMESTER, FETUS 1
== END 2021-01-09 20:16 | disposition home or self-care (01) ==
CPT/HCPCS: 99213

== ENCOUNTER 2021-01-26 20:18 | Outpatient (CLI) | payer OTHER ==
[2021-01-26 21:13] LABS: Appearance,Urine Clear (Clear); Bacteria,Urine Occasional /hpf; Bilirubin,Urine Negative (Negative); Blood,Urine Negative (Negative); Color,Urine Light Yellow; Glucose,Urine (UA) Negative (Negative); Ketones,Urine Negative (Negative); Leukocyte Esterase,Urine Moderate (Negative); Mucus,Urine Rare /hpf; Nitrite,Urine Negative (Negative); PH, Urine 5.5 (5.0-8.0); Protein,Urine Negative (Negative); RBC,Urine <1 /hpf (0-5); Specific Gravity,Urine 1.009 (1.001-1.035); Squamous Epithelial Cell,Urine 2 /hpf (0-4); Urobilinogen,Urine <2.0 mg/dL (<2.0); WBC,Urine 4 /hpf (0-5)
[2021-01-26 21:22] LABS: Amphetamine Screen,Urine Not Detected (NotDetected); Barbiturate Screen,Urine Not Detected (NotDetected); Benzodiazepines Screen,Urine Not Detected (NotDetected); Cocaine Screen,Urine Not Detected (NotDetected); Methadone Screen, Urine Not Detected (NotDetected); Opiate Screen,Urine Not Detected (NotDetected); Oxycodone Screen, Urine Not Detected (NotDetected); Phencyclidine Screen,Urine Not Detected (NotDetected); Tricyclic Antidepressant,Urine Not Detected (NotDetected); Urn Cannabinoid Scrn Not Detected (NotDetected)
[2021-01-26 21:27] LABS: Basophils % (A) 0 %; Eosinophils # (A) 0.2 k/uL (0-0.7); Eosinophils % (A) 3 %; HCT 42.6 % (34.0-46.0); HGB 13.3 gm/dL (11.4-16.0); Hypochromasia Slight; Lymphocytes # (A) 2.3 k/uL (1.0-4.8); Lymphocytes % (A) 26 %; MCH 23.9 pg (25.0-35.0); MCHC 31.2 g/dL (31.0-37.0); MCV 76.5 fL (80.0-100.0); Mean Platelet Volume 9.6; Microcytosis Slight; Monocytes # (A) 0.6 k/uL (0-1.0); Monocytes % (A) 7 %; Neutrophils # (A) 5.7 k/uL (1.3-7.7); Neutrophils % (A) 64 %; Platelet Count 278 k/uL (150-450); RBC 5.57 m/uL (3.80-5.40); RDW 15.7 % (11.5-15.5)
--- NOTE | 2021-01-27 00:28 | US ---
EXAMINATION TYPE: US OB >= 14 wk fetus DATE OF EXAM: 01/27/2021 COMPARISON: None CLINICAL HISTORY: No Care Due Date unknown. No history from patient. Limitation due to unkn own history. TECHNIQUE: Transabdominal (TA) GESTATIONAL AGE / DATING Physician Established: Not yet established. Dates by LMP: Unknown. Dates by First Scan: This is first scan. Dates by Current Scan: (23 weeks/3 days) EDC: 05/22/2021 SURVEY IUP: Single PLACENTA: Fundal PREVIA: No Previa DEEPA: 12.34 cm Normal CERVICAL LENGTH (transabdominal: norm > 3.0cm): 3.29 cm BIOMETRY PRESENTATION: Breech LIE: Oblique BPD: 5.70 cm 23 weeks / 3 days HC: 21.99 cm 24 weeks / 0 days AC: 18.81 cm 23 weeks / 4 days FL: 4.28 cm 24 weeks / 0 days ESTIMATED WEIGHT IN GRAMS: 627.71 grams ESTIMATED WEIGHT IN LBS/OZ: 1 lb. 6 oz. WEIGHT PERCENTAGE BASED ON ESTABLISHED DATES: % HC/AC: 1.17 Normal FL/AC: 22.78 Normal HEART RATE: 148 bpm RHYTHM: Normal IMPRESSION: The ultrasound gestational age is 23 weeks and 3 days. No complicating process.
[2021-01-27 00:46] VITALS: BP 125/63; PULSE 85; RESP 16; TEMP 98.3
[2021-01-27 11:43] LABS: Hepatitis B Surface Antigen Non-Reactive (Non-Reactive)
[2021-01-27 19:29] LABS: HIV 2 AB Non-Reactive (Non-Reactive); HIV AB P24 Non-Reactive (Non-Reactive); HIV P24 AG Non-Reactive (Non-Reactive)
--- NOTE | 2021-02-04 16:39 | P.MSEPDOC ---
Presenting Problems - Arrival Data Date of Arrival on Unit: 01/26/21 Time of Arrival on Unit: 20:18 Mode of Transport: Portable - Complaint OB-Reason for Admission/Chief Complaint: Pain Comment: lower abdominal and left flank pain Medical History - Information : 1 Para: 0 Term: 0 : 0 Abortions: Spontaneous or Elective: 0 Number of Living Children: 0 - Gestational Age Gestational Age by NEGRITO (wks/days): 23 Weeks and 4 Days - History Complications: No Care Review of Systems - Review of Systems Constitutional: No problems Breast: No problems ENT: No problems Cardiovascular: No problems Respiratory: No problems Gastrointestinal: No problems Genitourinary: No problems Musculoskeletal: No problems Neurological: No problems Skin: No problems Vital Signs - Temperature Temperature: 98.3 F Temperature Source: Oral - Pulse Pulse Oximetery Pulse Rate: 85 Pulse Assessment Method: Pulse Oximetry - Respirations Respiratory Rate: 16 Oxygen Delivery Method: Room Air O2 Sat by Pulse Oximetry: 100 - Blood Pressure Right Arm Blood Pressure: 125/63 Blood Pressure Mean: 83 Blood Pressure Source: Automatic Cuff Medical Screen Scoring - Assessment - Baby A Baseline FHR: 155 Heart Rate - NICHD Category: Category I (Normal) Physician Notification - Physician Notified Physician Notified Date: 01/26/21 Physician Notified Time: 20:50 Physician: Sonia Clancy New Order Received: Yes - Notification Comment Comment: 2049-Dr. Clancy on unit. Report given on maternal/ status. Pt complains of lower. abominal and left flank pain since this morning. Pt also states she has pain with. urination. Pt has had no care and traveled from [facility] sometime in December. Pt. states she is about 5 1/2 months . Orders to send a UA, draw labs, and. get an U/S. 2152-Dr. Clancy on unit, labs reviewed, possible UTI starting. Still waiting on u/s. Dr. Clancy wrote a prescription for macrobid to send with pt. Pt can be discharged home. with instructions to orally hydrate and take antibiotics once U/S is done. Call Dr. Clancy only if there are abnormalilties on U/S Maternal Triage Index - Maternal Triage Index Presenting for scheduled procedure w/no complaint: No - Stat/Priority 1 Stat Priority 1: No - Urgent/Priority 2 Urgent Priority 2: No - Prompt/Priority 3 Prompt Priority 3: No - Non-Urgent/Priority 4 Non-Urgent Priority 4: Yes Criteria Met for Priority 4: Dr. Clancy initially notified at 2049 - Scheduled/Requesting Priority 5 Scheduled/Requesting Priority 5: No Disposition - Disposition OB Disposition: Discharge to home Discharge Date: 01/27/21 Discharge Time: 00:10 I agree with the RN Medical Screening Exam: Yes Case reviewed; plan agreed upon as documented in EMR&OBIX.: Yes Comments: Patient was not seen or examined by myself Diagnosis: RELATED CONDITIONS, UNSPECIFIED, SECOND TRIMESTER
== END 2021-01-27 00:10 | disposition home or self-care (01) ==
LOC: FBPOP 20:18
PROVIDERS: ATTEND Obstetrics & Gynecology Obstetrics
DX: O26.892 Other specified pregnancy related conditions, second trimester (principal); R10.30 Lower abdominal pain, unspecified; Z3A.23 23 weeks gestation of pregnancy
CPT/HCPCS: 86900; 86901; 86762; 82947; 85025; 86850; 87340; 81001; 86780; 80306; 87390; 76805; G0463; 99213

== ENCOUNTER 2021-03-27 22:10 | Outpatient (CLI) | payer OTHER ==
[2021-03-27] MEDS ORDERED: LACTATED RINGERS 1,000 ML IV SCH (22:30)
[2021-03-27] MEDS ORDERED: BETAMET ACET-BETAMETH SOD PHOS 6 MG/ML MDV IM SCH (22:30)
[2021-03-27] MEDS ORDERED: hydrALAZINE HCL 20 MG/ML 1 ML VIAL IVP PRN (22:35)
[2021-03-27] MEDS ORDERED: LABETALOL 5 MG/ML VIAL MDV IVP PRN ×3 (22:35)
[2021-03-27 22:59] LABS: Amorphous Sediment,Urine Rare /hpf; Appearance,Urine Cloudy (Clear); Bilirubin,Urine Negative (Negative); Blood,Urine Trace (Negative); Color,Urine Yellow; Glucose,Urine (UA) Negative (Negative); Hyaline Casts,Urine 7 /lpf (0-2); Ketones,Urine Negative (Negative); Leukocyte Esterase,Urine Large (Negative); Mucus,Urine Rare /hpf; Nitrite,Urine Negative (Negative); Protein,Urine 3+ (Negative); RBC,Urine 4 /hpf (0-5); Specific Gravity,Urine 1.014 (1.001-1.035); Squamous Epithelial Cell,Urine 3 /hpf (0-4); Urobilinogen,Urine <2.0 mg/dL (<2.0); WBC,Urine 52 /hpf (0-5)
[2021-03-27 23:02] LABS: Creatinine,Urine Random 61.4 mg/dL
[2021-03-27] MEDS ORDERED: MAGNESIUM SULFATE GM 6 GM in SODIUM CHLORIDE 0.9% 100 ML IVPB ONE (23:07)
[2021-03-27] MEDS ORDERED: MAGNESIUM SULFATE-WATER PMX 20 GM in WATER FOR INJECTION 1 500ML.BAG IV SCH (23:15)
[2021-03-27 23:31] LABS: Anisocytosis Slight; Basophils % (A) 0 %; Eosinophils # (A) 0.1 k/uL (0-0.7); Eosinophils % (A) 2 %; HCT 46.4 % (34.0-46.0); HGB 14.5 gm/dL (11.4-16.0); Hypochromasia Slight; Lymphocytes # (A) 2.6 k/uL (1.0-4.8); Lymphocytes % (A) 29 %; MCH 25.1 pg (25.0-35.0); MCHC 31.3 g/dL (31.0-37.0); MCV 80.2 fL (80.0-100.0); Mean Platelet Volume 9.9; Microcytosis Slight; Monocytes # (A) 0.5 k/uL (0-1.0); Monocytes % (A) 5 %; Neutrophils # (A) 5.6 k/uL (1.3-7.7); Neutrophils % (A) 62 %; Platelet Count 181 k/uL (150-450); RBC 5.79 m/uL (3.80-5.40); RDW 18.5 % (11.5-15.5)
--- NOTE | 2021-03-27 23:34 | P.HPOB ---
History of Present Illness H&P Date: 03/27/21 Chief Complaint: Epigastric pain and headaches This patient is a pleasant 30-year-old 1 para 0 female estimated date of confinement 05/22/2021 estimated gestational age 32-0/7 weeks which was set by a 23 week ultrasound who presents to labor and delivery with complaints of 1 day history of epigastric pain with radiation to her back, headaches, and some nausea. Patient's care is per Dr. Mae. is complicated by late to seek care. Patient had an initial ultrasound at 23 weeks which set her EDC. Patient has had a total of [address] Mae. She was referred to maternal- medicine for evaluation of a positive toxoplasmosis IgG and IgM. Confirmatory tests were sent out and are pending according to the patient's chart. Patient did have a normal level III ultrasound per maternal medicine. Patient is from [facility], and therefore does have some language barrier however her father is translating. He indicates that this patient began developing pain in the epigastric area yesterday with radiation to her back. Initial blood pressure on admission was 176/111 and 188/106. Patient denies a history of hypertension in the past and her 2 visits were 118/72 and 122/84. Patient reports movement. Review of Systems Constitutional: Reports as per HPI Genitourinary: Reports Menstruation: Reports amenorrhea Past Medical History Past Medical History: No Reported History History of Any Multi-Drug Resistant Organisms: ESBL Date of last positivie culture/infection: 07/30/18 MDRO Source:: ESBL URINE Past Surgical History: No Surgical Hx Reported Past Anesthesia/Blood Transfusion Reactions: No Reported Reaction Past Psychological History: No Psychological Hx Reported Smoking Status: Never smoker Past Alcohol Use History: None Reported Past Drug Use History: None Reported Medications and Allergies Home Medications Medication Instructions Recorded Confirmed Type Pnv,Calcium 72/Iron/Folic Acid 1 tab PO DAILY 03/27/21 03/27/21 History [ Plus Tablet] Allergies Allergy/AdvReac Type Severity Reaction Status Date / Time No Known Allergies Allergy Verified 03/27/21 22:14 Exam Intake and Output 03/27/21 03/27/21 03/28/21 14:59 22:59 06:59 Other: Weight 64.41 kg Results blood work shows she is O-, rubella immune, hepatitis B negative, RPR nonreactive, toxoplasmosis IgG and IgM were positive on February 03, level III ultrasound on February 22 was normal. It appears patient did not receive RhoGAM during her care at this point. Abnormal Lab Results - Last 24 Hours (Table) 03/27/21 Range/Units 22:38 Urine Appearance Cloudy H (Clear) Urine Protein 3+ H (Negative) Urine Blood Trace H (Negative) Ur Leukocyte Esterase Large H (Negative) Urine WBC 52 H (0-5) /hpf Amorphous Sediment Rare H (None) /hpf Hyaline Casts 7 H (0-2) /lpf Urine Mucus Rare H (None) /hpf Assessment and Plan Assessment: This is a pleasant 30-year-old 1 para 0 female 32-0/7 weeks gestation with 1 day history of epigastric pain, headache, and nausea. Blood pressure significantly elevated. My impression that most likely she does have severe preeclampsia and certainly we need to rule out HELLP syndrome. I've already administered a dose of Celestone and sent blood work. We've already initiated antihypertensive medication. Plan is to administer magnesium sulfate, await laboratory results and most likely transfer to a tertiary facility in the event she needs delivery. Of note it appears patient did not receive RhoGAM during her care thus far she will therefore need to have a RhoGAM injection as well. (1) 32 weeks gestation of Current Visit: Yes Status: Acute Code(s): Z3A.32 - 32 WEEKS GESTATION OF SNOMED Code(s): 8080105 (2) Preeclampsia Current Visit: Yes Status: Acute Code(s): O14.90 - UNSPECIFIED PRE- ECLAMPSIA, UNSPECIFIED TRIMESTER SNOMED Code(s): 135708428 (3) Rh negative status during Current Visit: Yes Status: Acute Code(s): O26.899 - OTH RELATED CONDITIONS, UNSPECIFIED TRIMESTER; Z67.91 - UNSPECIFIED BLOOD TYPE, RH NEGATIVE SNOMED Code(s): 182280958
[2021-03-27 23:45] LABS: ALT 33 U/L (4-34); AST 54 U/L (14-36); African American GFR (CKD) >90 (>60 ml/min/1.73 sqM); Blood Urea Nitrogen 8 mg/dL (7-17); LDH 616 U/L (313-618); Non-African American GFR(CKD) >90 (>60 ml/min/1.73 sqM); Uric Acid 5.9 mg/dL (3.7-7.4)
[2021-03-28 00:58] VITALS: BP 176/111; PULSE 86; RESP 16; TEMP 96.5
--- NOTE | 2021-03-28 07:11 | P.MSEPDOC ---
Presenting Problems - Arrival Data Date of Arrival on Unit: 03/27/21 Time of Arrival on Unit: 22:10 Mode of Transport: Wheelchair - Complaint OB-Reason for Admission/Chief Complaint: PIH Comment: Patient here for epigastric pain radiating to her back, headache and nausea. Medical History - Information : 1 Para: 0 Term: 0 : 0 Abortions: Spontaneous or Elective: 0 Number of Living Children: 0 - Gestational Age Gestational Age by NEGRITO (wks/days): 32 Weeks and 1 Days Review of Systems - Review of Systems Constitutional: No problems Breast: No problems ENT: No problems Cardiovascular: No problems Respiratory: No problems Gastrointestinal: No problems Genitourinary: No problems Musculoskeletal: No problems Neurological: No problems Skin: No problems Vital Signs - Temperature Temperature: 96.5 F Temperature Source: Oral - Pulse Right Brachial Pulse Rate: 86 Pulse Assessment Method: Automatic Cuff - Respirations Respiratory Rate: 16 Oxygen Delivery Method: Room Air - Blood Pressure Right Arm Blood Pressure: 176/111 Blood Pressure Mean: 132 Blood Pressure Source: Automatic Cuff Medical Screen Scoring - Cervical Exam Membranes: Intact - Assessment - Baby A Baseline FHR: 155 Heart Rate - NICHD Category: Category I (Normal) NST: Reactive Physician Notification - Physician Notified Physician Notified Date: 03/27/21 Physician Notified Time: 22:10 Physician: Fredo Torres New Order Received: Yes - Notification Comment Comment: Dr. Torres coming in to evaluate patient. Maternal Triage Index - Stat/Priority 1 Stat Priority 1: Yes Provider Notified: Fredo Torres Provider Notified Time: 22:20 Criteria Met for Priority 1: Blood pressure 176/111, upon recheck 188/106 Disposition - Disposition OB Disposition: Transfer to other dept./facility Transferred to:: [facility] Discharge Date: 03/28/21 Discharge Time: 00:45 I agree with the RN Medical Screening Exam: Yes Case reviewed; plan agreed upon as documented in EMR&OBIX.: Yes Diagnosis: SEVERE PRE-ECLAMPSIA, THIRD TRIMESTER (Please see dictated H&P on this patient's admission and transfer.)
--- NOTE | 2021-03-28 07:12 | P.DS ---
Providers Expected date of discharge: 03/28/21 Attending physician: Fredo Torres Primary care physician: Stated None - Discharge Diagnosis(es) (1) 32 weeks gestation of Status: Acute (2) Preeclampsia Status: Acute (3) Rh negative status during Status: Acute Hospital Course: Patient is admitted to triage with significant hypertension and diagnosed with preeclampsia. I contacted [facility] and patient was transferred on magnesium sulfate secondary to severe preeclampsia. Patient Condition at Discharge: Stable Plan - Discharge Summary New Discharge Prescriptions: No Action Pnv,Calcium 72/Iron/Folic Acid [ Plus Tablet] 1 tab PO DAILY Discharge Medication List Pnv,Calcium 72/Iron/Folic Acid [ Plus Tablet] 1 tab PO DAILY 03/27/21 [History] Discharge Disposition: DC/TRNS INTERMEDIATE CARE FAC
== END 2021-03-28 00:45 ==
LOC: FBPOP 22:10
PROVIDERS: ATTEND Obstetrics & Gynecology
DX: O14.13 Severe pre-eclampsia, third trimester (principal); Z3A.32 32 weeks gestation of pregnancy; Z67.91 Unspecified blood type, Rh negative
CPT/HCPCS: 96361; 96365; 96367; 96372; 82570; 84156; 82565; 83615; 84450; 84460; 84520; 84550; 85025; 81001; G0463; J3475 ×2; J0702; 99215

== ENCOUNTER → 2023-08-18 | Outpatient (CLI) | payer OTHER ==
--- NOTE | 2023-08-19 14:03 | US ---
EXAMINATION TYPE: US transvaginal DATE OF EXAM: 08/18/2023 COMPARISON: 06/19/2020 CLINICAL INDICATION: Female, 32 years old with history of R10.2 PELVIC AND PERINEAL PAIN x few weeks; Hx Ovarian Cysts TECHNIQUE: Transvaginal sonographic images were ordered by doctor Date of LMP: 3 weeks ago EXAM MEASUREMENTS: Uterus: 6.8 x 3.2 x 4.9 cm Endometrial Stripe: 0.7 cm Right Ovary: 3.5 x 2.6 x 2.0 cm Left Ovary: 3.2 x 2.0 x 2.5 cm 1. Uterus: Anteverted wnl 2. Endometrium: wnl 3. Right Ovary: wnl, follicles are present. 4. Left Ovary: wnl, follicles are present. 5. Bilateral Adnexa: wnl 6. Posterior cul-de-sac: wnl IMPRESSION: 1. Unremarkable pelvic ultrasound
== END | disposition home or self-care (01) ==
LOC: RADUSWWP 14:58
PROVIDERS: ATTEND Internal Medicine
DX: R10.2 Pelvic and perineal pain (principal); Z87.42 Personal history of other diseases of the female genital tract
CPT/HCPCS: 76830

== ENCOUNTER 2024-07-03 08:47 | Emergency (ER) | payer OTHER ==
[2024-07-03 09:05] VITALS: TEMP 98
--- NOTE | 2024-07-03 09:31 | ED ---
URI HPI - General Source: patient, RN notes reviewed Mode of arrival: ambulatory Limitations: no limitations - History of Present Illness MD Complaint: cough <Chanel Vazquez - Last Filed: 07/03/24 09:30> <Jose Bello - Last Filed: 07/03/24 12:06> - General Chief Complaint: Upper Respiratory Infection Stated Complaint: ANIRUDH Time Seen by Provider: 07/03/24 09:05 - History of Present Illness Initial Comments: Quick Note: This is a 33-year-old female who presents to the emergency department for coughing and shortness of breath. Symptoms started 3 days ago. She has been around her daughter who is sick with similar symptoms. Denies any chest pain, fevers, or chills. Cough is described as productive. (Chanel Vazquez) 33-year-old female with cough, sore throat, subjective fever. Symptoms present between 2 and 3 days. Patient states her daughter has similar upper respiratory infection. Patient has no previous medical history, no surgical history. (Jose Bello) - Related Data Home Medications Medication Instructions Recorded Confirmed Vit No.180/Iron/Folic 1 tab PO DAILY 03/27/21 03/27/21 [ Plus Tablet] Allergies Allergy/AdvReac Type Severity Reaction Status Date / Time No Known Allergies Allergy Verified 07/03/24 09:05 Review of Systems ROS Other: All systems not noted in ROS Statement are negative. <Chanel Vazquez - Last Filed: 07/03/24 09:30> ROS Other: All systems not noted in ROS Statement are negative. <Jose Bello - Last Filed: 07/03/24 12:06> ROS Statement: Those systems with pertinent positive or pertinent negative responses have been documented in the HPI. Past Medical History Past Medical History: No Reported History History of Any Multi-Drug Resistant Organisms: ESBL Date of last positivie culture/infection: 07/30/18 MDRO Source:: ESBL URINE Past Surgical History: No Surgical Hx Reported Past Anesthesia/Blood Transfusion Reactions: No Reported Reaction Past Psychological History: No Psychological Hx Reported Smoking Status: Never smoker Past Alcohol Use History: None Reported Past Drug Use History: None Reported <Chanel Vazquez - Last Filed: 07/03/24 09:30> General Exam Limitations: no limitations <Chanel Vazquez - Last Filed: 07/03/24 09:30> General appearance: alert, in no apparent distress Head exam: Present: atraumatic, normocephalic Eye exam: Present: normal appearance, PERRL ENT exam: Present: normal exam, normal oropharynx, mucous membranes moist Neck exam: Present: normal inspection. Absent: tenderness Respiratory exam: Present: normal lung sounds bilaterally. Absent: respiratory distress, wheezes Cardiovascular Exam: Present: regular rate, normal rhythm GI/Abdominal exam: Present: soft. Absent: distended, tenderness, guarding Neurological exam: Present: alert. Absent: motor sensory deficit Skin exam: Present: warm, dry, intact, normal color <Jose Bello - Last Filed: 07/03/24 12:06> - General Exam Comments Initial Comments: Visual Physical Exam Vital signs reviewed General: Well-appearing, nontoxic, no acute distress. Head: Normocephalic, atraumatic Eyes: PERRLA, EOMI ENT: Airway patent Chest: Nonlabored breathing Skin: No visual rash, normal skin tone Neuro: Alert and oriented 3 Musculoskeletal: No gross abnormalities (Chanel Vazquez) Course Vital Signs 07/03/24 09:02 Temperature 98 F Pulse Rate 72 Respiratory 18 Rate Blood Pressure 110/76 O2 Sat by Pulse 98 Oximetry Medical Decision Making <Chanel Vazquez - Last Filed: 07/03/24 09:30> <Jose Bello - Last Filed: 07/03/24 12:06> - Medical Decision Making I performed the QuickNote portion of this chart. Signed Chanel Vazquez PA-C. (Chanel Vazquez) Was pt. sent in by a medical professional or institution ([facility], [facility], urgent care, hospital, or half-way...) When possible be specific @ -No Did you speak to anyone other than the patient for history (EMS, parent, family, police, friend...)? What history was obtained from this source @ -No Did you review nursing and triage notes (agree or disagree)? Why? @ -I reviewed and agree with nursing and triage notes Were old charts reviewed (outside hosp., previous admission, EMS record, old EKG, old radiological studies, urgent care reports/EKG's, half-way records)? Report findings @ -No old charts were reviewed Differential Diagnosis pneumonia, bronchitis, viral upper respiratory infection EKG interpreted by me (3pts min.). @ -As above X-rays interpreted by me (1pt min.). @ -Chest x-ray is clear, no focal pneumonia, no pneumothorax CT interpreted by me (1pt min.). @ -None done U/S interpreted by me (1pt. min.). @ -None done What testing was considered but not performed or refused? (CT, X-rays, U/S, labs)? Why? @ -None What meds were considered but not given or refused? Why? @ -None Did you discuss the management of the patient with other professionals (professionals i.e. , PA, HEEL STAINER, lab, RT, psych nurse, school social worker, fiber optic central office installer, teacher, data officer, caseworker protective services)? Give summary @ -No Was smoking cessation discussed for >3mins.? @ -No Was critical care preformed (if so, how long)? @ -No Were there social determinants of health that impacted care today? How? (Homelessness, low income, unemployed, alcoholism, drug addiction, transportation, low edu. Level, literacy, decrease access to med. care, [place] [facility], rehab)? @ -No Was there de-escalation of care discussed even if they declined (Discuss DNR or withdrawal of care, Hospice)? DNR status @ -No What co-morbidities impacted this encounter? (DM, HTN, Smoking, COPD, CAD, Cancer, CVA, ARF, Chemo, Hep., AIDS, mental health diagnosis, sleep apnea, morbid obesity)? @ -None Was patient admitted / discharged? Hospital course, mention meds given and route, prescriptions, significant lab abnormalities, going to OR and other pertinent info. @ -33-year-old female, well-appearing with cough, congestion, sore throat. Likely viral illness. Viral swabs are negative chest x-ray is clear, no pneumonia. Patient will monitor symptoms and follow-up with primary care. Undiagnosed new problem with uncertain prognosis? @ -No Drug Therapy requiring intensive monitoring for toxicity (Heparin, Nitro, Insulin, Cardizem)? @ -No Were any procedures done? @ -No Diagnosis/symptom? @ -[Upper respiratory infection Acute, or Chronic, or Acute on Chronic? @Acute Uncomplicated (without systemic symptoms) or Complicated (systemic symptoms)? @ -Default Side effects of treatment? @ -No Exacerbation, Progression, or Severe Exacerbation? @ -No Poses a threat to life or bodily function? How? (Chest pain, USA, SC, pneumonia, PE, COPD, DKA, ARF, appy, cholecystitis, CVA, Diverticulitis, Homicidal, Suicidal, threat to staff... and all critical care pts) @ -No (Jose Bello) - Lab Data Lab Results 07/03/24 Range/Units 09:06 Influenza Type A (PCR) Not Detected (Not Detectd) Influenza Type B (PCR) Not Detected (Not Detectd) RSV (PCR) Not Detected (Not Detectd) SARS-CoV-2 (PCR) Not Detected (Not Detectd) Disposition <Chanel Vazquez - Last Filed: 07/03/24 09:30> Is patient prescribed a controlled substance at d/c from ED?: No Time of Disposition: 12:06 <Jose Bello - Last Filed: 07/03/24 12:06> Clinical Impression: Acute upper respiratory infection Disposition: HOME SELF-CARE Condition: Good Instructions (If sedation given, give patient instructions): Upper Respiratory Infection (ED) Referrals: Franca Guo MD [Primary Care Provider] - 1-2 days
--- NOTE | 2024-07-03 09:34 | XR ---
EXAMINATION TYPE: XR chest 2V DATE OF EXAM: 07/03/2024 9:26 AM COMPARISON: None CLINICAL INDICATION: Female, 33 years old with history of ANIRUDH; TECHNIQUE: XR chest 2V Frontal and lateral views of the chest. FINDINGS: Lungs/Pleura: There is no evidence of pleural effusion, focal consolidation, or pneumothorax. Pulmonary vascularity: Unremarkable. Heart/mediastinum: Cardiomediastinal silhouette is unremarkable. Musculoskeletal: No acute osseous pathology. IMPRESSION: No acute cardiopulmonary disease/process. [facility], , 07/03/2024 9:31 AM
[2024-07-03 12:21] VITALS: BP 110/79; PULSE 74; RESP 20
== END 2024-07-03 12:20 | disposition home or self-care (01) ==
LOC: EC 08:47
DX: J06.9 Acute upper respiratory infection, unspecified (principal)
CPT/HCPCS: 71046; 87636; 99285

== ENCOUNTER → 2024-07-03 | Outpatient (CLI) | payer OTHER ==
--- NOTE | 2024-07-03 08:57 | US ---
EXAMINATION TYPE: US abdomen complete DATE OF EXAM: 07/03/2024 COMPARISON: US 06/19/2020, CT 2019 CLINICAL INDICATION: Female, 33 years old with history of R10.13 Epigastric pain; Pain since 2019 TECHNIQUE: Grayscale and color Doppler imaging of the abdomen was performed. FINDINGS: EXAM MEASUREMENTS: Liver Length: 15.4 cm Gallbladder Wall: 0.18 cm CBD: 0.32 cm, color Doppler imaging was utilized to isolate the common bile duct for measurement. Spleen: 10.5 cm Right Kidney: 11.6 x 5.0 x 4.1 cm Left Kidney: 9.8 x 5.8 x 4.7 cm PAROLE DIRECTOR NOTES: Exam is limited due to gas. Pancreas: Limited visibility Liver: Appears coarse in echotexture no dilated ducts, masses or cysts. Gallbladder: Appears wnl, folds seen Evidence for sonographic Walker's sign: No CBD: Appears wnl Spleen: Appears wnl, Right Kidney: Renal pelvis appears dilated Left Kidney: *Hyperechoic focus seen upper pole = 0.4 x 0.5 x 0.4 cm. Upper IVC: wnl Abd Aorta: Appears wnl, iliac arteries were obscured 1. IMPRESSION: 2. No evidence for acute process. 3. Nonobstructing left renal calculus. [facility], , 07/03/2024 8:55 AM
== END | disposition home or self-care (01) ==
LOC: RADUSWWP 08:13
PROVIDERS: ATTEND Family Medicine
DX: N20.0 Calculus of kidney (principal); R10.13 Epigastric pain
CPT/HCPCS: 76700